=== PATIENT | female | born 1975 | race African-American/Black ===

== ENCOUNTER 2016-07-23 01:50 | Inpatient (IN) | payer OTHER ==
[~2016-07-23] VITALS: Ht 154.9 cm; Wt 102.1 kg
--- NOTE | 2016-07-23 11:26 | Admission Core Measures ---
Admission Meds I reviewed the following Meds: Current Medications Sig/Rosa Start time Last Medication Dose Stop Time Status Admin Cefazolin Sodium 2,000 MG ONCE 07/23 NR (Kefzol-Ancef Inj) 07/23 2358 Dexamethasone 10 MG ONCE 07/23 NR (Decadron) 07/23 2358 Heparin Sodium 5,000 UNIT ONCE 07/23 NR (Porcine) 07/23 2358 Acute Coronary Syndrome Inclusion Criteria ACS Diagnosis No Inpatient Core Measures LDL Reminder: If No, please order W/I first 24hr of stay Congestive Heart Failure Inclusion Criteria CHF Diagnosis No Cerebrovascular accident Inclusion Criteria CVA/TIA Diagnosis No Inpatient Core Measures Bedside Swallow Eval Reminder: If BSE failed, place ST order Antithrombotic Reminder: Order Antithrombotic Medication by end of day 2 Antithrombotic Reminder: Document Reason Antithrombotic Not ordered by end of day 2 AFIB/Flutter Reminder: If Present, add to problem list AFIB/Flutter Reminder: Order Anticoag Medication for pts with AFIB/Flutter Atherosclerosis Reminder: If Present, add to problem list LDL Reminder: If No, please order W/I first 24hr of stay PT Order Reminder: If No, please order Venous thromboembolism Inpatient Core Measures VTE Risk Factors: Age > 40, Obesity, Surgery VTE Prophylaxis Ordered Inpt Mech & Pharm No Mech VTE prophylaxis d/t No contraindications No VTE Pharm Prophylaxis d/t No contraindications Inclusion Criteria - Per Current guidelines, there needs to be overlap - treatment for the first 5 days of Warfarin therapy. - Parenteral Anticoagulation (IV or SC) needs to be - given along with Warfarin therapy. VTE Diagnosis No VTE Type NONE VTE Confirmed by (Test) NONE Problem List As ranked by this Provider includes Assessment & Plan 1. S/P laparoscopic sleeve gastrectomy
--- NOTE | 2016-07-23 11:31 | Operative Report ---
Operative/Inv Procedure Report Surgery Date: 07/23/16 Name of Procedure: Laparoscopic vertical sleeve gastrectomy Pre-Operative Diagnosis: Morbid obesity, sleep apnea Post-Operative Diagnosis: Same Estimated Blood Loss: less than 50ml Surgeon/Registered Medical Transcriptionist: ZANE FERNANDEZ,LUZ Junior PA-C Anesthesia: general endotracheal tube, block IV Fluids: LR Implants: none Urine Output: not measured Drains: none Specimens: portion of stomach Complications: none Condition: stable Operative/Procedure Note Note: After informed consent and proper identification the patient was taken the operating room and placed on the operating table supine position patient had Venodyne stockings applied she underwent a general endotracheal anesthetic. Anesthesia administered a Windy block. The abdomen was prepped and draped in normal sterile fashion using a Covidean 10 mm Optiview trocar we entered the abdominal cavity without difficulty. We insufflated with 14 mm CO2 pressure. We placed additional trochars 25 mm trochars in each of the subcostal margins a Jim liver retractor in the upper midline to retract the left lobe of the liver and a 15 mm trocar in the right mid abdomen We had excellent visualization the liver was smooth small and glistening there was no evidence of a hiatal hernia. We had anesthesia decompress the stomach with an orogastric tube and then remove it using a Sonicision Scalpel divided the vascular gastric attachments along the greater curvature of the stomach opposite the angularis 6 cm from the pylorus all the way up to the angle his we reflected the fundus of the stomach off the left taz. Patient had very clear appearing anatomy we could visualize the pancreas were careful not to injure the spleen pancreas and splenic vessels. We began stapling after having anesthesia placed a 30 Albanian bougie into the stomach as a guide we stapled using to 60 cm black cartridges with seam guard followed by 2 purple 60 cm with seam guard and a single 45 purple cartridge with seam guard to completely transect the sleeve from the remnant stomach there is no bleeding along the staple line. We removed the remnant stomach in a 15 Endo Catch bag and removed a Jim liver retractor and all trochars the bougie was removed by anesthesia sponge and instrument counts were correct there is no active bleeding we closed the skin incisions with 4-0 Monocryl subcuticular stitches and skin glue patient was extubated and taken the recovery room in stable condition Findings: normal liver, no evidence of hiatal hernia Discharge Disposition: PACU
--- NOTE | 2016-07-23 14:13 | PN- Bariatrics ---
Subjective Subjective: The patient was seen this afternoon postoperatively. She reports the pain was under adequate control but she was having some mild nausea. She had no other complaints at the current time and denied any chest pain or difficulty breathing. Objective Vital Signs and I&Os Vital signs: Blood pressure 130/80, pulse 60, temperature 97.8, O2 saturation 100% on 2 L via nasal cannula I's and O's: 1200 ML's in of lactated Ringer's/patient has not voided/EBL scant Physical Exam: Gen.: Alert and obvious distress Skin: Warm and dry Cardiac: S1-S2 regular Pulmonary: Bilateral breath sounds were equal and slightly decreased at bases. Abdomen: Soft, obese, appropriate incisional tenderness, bowel sounds positive. Port sites are clean, dry, and intact without signs of infection aside from the left lateral port site which was slightly bloody but intact. Extremities: Bilateral lower extremities are warm without calf tenderness or significant edema. Assessment/Plan Assessment/Plan Assessment: 41-year-old female status post laparoscopic sleeve gastrectomy. Postoperative the patient is progressing as expected and her pain is under adequate control. Plan: Stage I diet until midnight then the patient will be nothing by mouth for an upper GI in the morning Out of bed and ambulate GI and DVT prophylaxis IV hydration Follow-up morning laboratory studies GI and DVT prophylaxis Continue current pain regiment Strict I's and O's Core Measures/Miscellaneous Venous Thromboembolism VTE Risk Factors: Age > 40, Obesity, Surgery VTE Contraindications: No Contraindications VTE Prophylaxis Ordered Inpt: Mech & Pharm VTE Diagnosis: No VTE Type: NONE VTE Confirmed by (Test): NONE Beta Hilario Is Beta Hilario a Home Med? No Antibiotics Is Patient on Antibiotics? Yes If Yes: prophylaxis
[2016-07-23] MEDS ORDERED: HYCET 7.5 MG-3473 ML PO (14:50)
[2016-07-23] MEDS ORDERED: PROTONIX40 M3 PO (14:50)
--- NOTE | 2016-07-23 14:53 | Patient Discharge Instructions ---
Discharge Instructions General Discharge Information You were seen/treated for: Morbid obesity You had these procedures: Laparoscopic sleeve gastrectomy Watch for these problems: Significantly increased pain, nausea, or temperatures. Increased redness or drainage from around the incisions Chest pain or difficulty breathing. No bath, but you may shower: Yes Other wound care: Remove dressings when to get home wheezing weight strips intact until seen by [facility] shower regularly but no bath and pat dry Special Instructions: See preprinted information packet Ambulate frequently May use Gas-X for gas pain Diet Recommended Diet: Bariatric Activity Activity Self Limited: Yes Pounds, do NOT lift more than: 10 Acute Coronary Syndrome Inclusion Criteria At DC or during hospital stay patient has or had the following: ACS DIAGNOSIS No Discharge Core Measures Meds if any: Prescribed or Continued at Discharge Meds if any: NOT Prescribed or Continued at Discharge Congestive Heart Failure Inclusion Criteria At DC or during hospital stay patient has or had the following: CHF DIAGNOSIS No Discharge Core Measures Meds if any: Prescribed or Continued at Discharge Meds if any: NOT Prescribed or Continued at Discharge Cerebrovascular accident Inclusion Criteria At DC or during hospital stay patient has or had the following: CVA/TIA Diagnosis No Discharge Core Measures Meds if any: Prescribed or Continued at Discharge Meds if any: NOT Prescribed or Continued at Discharge Venous thromboembolism Inclusion Criteria VTE Diagnosis No VTE Type NONE VTE Confirmed by (Test) NONE Discharge Core Measures - Per Current guidelines, there needs to be overlap - treatment for the first 5 days of Warfarin therapy. - If discharged on Warfarin prior to 5 days of - overlap therapy, the patient will need to be - assessed for post discharge needs including - *Post discharge parental anticoagulation - *Warfarin and/or parental anticoagulation education - *Follow up date to check INR post discharge At least 5 days overlap therapy as Inpatient No Meds if any: Prescribed or Continued at Discharge Note: Overlap Therapy is Warfarin and Anticoagulant Meds if any: NOT Prescribed or Continued at Discharge
--- NOTE | 2016-07-23 14:55 | Surg Short-stay <48hrs Dis Sum ---
See Addendum Visit Information Visit Dates Admission Date: 07/23/16 Discharge Date: 07/25/16 Surgical Short Stay DC Summary Admission Diagnosis: Morbid obesity Final Diagnosis: Same Procedure(s): Scopic sleeve gastrectomy Summary/Significant Findings: The patient was admitted on 07/23/2016. She was brought to the operating theater where she underwent a laparoscopic sleeve gastrectomy. Postoperatively the patient progressed as expected, her pain is under adequate control, and she was tolerating a stage I diet without nausea. The patient was discharged on hospital course. Condition at Discharge: Stable Discharge Disposition: home or self care Discharge instructions provided to patient/family: Yes Post discharge follow-up plan: Call the office to be seen in one week
[2016-07-23 15:01] VITALS: BP 112/88
--- NOTE | 2016-07-23 15:01 | NUR ---
ADMISSION NOTE: PT ARRIVED TO FLOOR WITH DISTRIBUTION VIA STRETCHER, SLEEPY ORIENTED X3, ROOM AIR, SATTING 94%, PAIN 10/10 TO LEFT CHEST, SURG PA PAULINE AWARE AND SAYS IT'S TO BE EXPECTED- GAS PAIN. PT EDUCATED THAT AMBULATING EASES GAS PAIN. PT NAUSEOUS AND DRY HEAVING, PAULINE AWARE.REGLAN ORDERED AND ADMINISTERED. 5 2X2 DRESSINGS TO ABDOMEN WITH MODERATE SEROSANGUINOUS DRAININAGE. IV SITES INTACT, IVF RUNNING PER MD ORDER. PT EDUCATED TO DRINK ONE SHOT OF BARIATRIC PROTEIN DRINK Q 15MINS WHILE AWAKE AND NOT NAUSEOUS. RESTING IN BED IN LOW LOCKED POSITION. TORADOL GIVEN FOR PAIN.
[2016-07-23 17:00] VITALS: BP 138/72
[2016-07-23 19:08] VITALS: BP 128/70
[2016-07-23 21:16] VITALS: BP 132/80
--- NOTE | 2016-07-24 | NUR ---
PT C/O OF NAUSEA AND HAD TWO MINOR EPISODES OF VOMITTING OF 5 ML PINKISH TINGED. PT WAS GIVEN ZOFRAN. SURGICAL PA MADE AWARE. WILL CONTINUE TO MONITOR.
[2016-07-24 01:02] VITALS: BP 108/70
[2016-07-24 05:06] VITALS: BP 108/80
--- NOTE | 2016-07-24 08:03 | PN- Bariatrics ---
Subjective Subjective: Reports nausea slightly better. Epigastric discomfort slightly better after ambulating. Currently npo awaiting upper gi study. No dizziness. No shortness of breath. No chest pains. Voiding well. Objective Vital Signs and I&Os Vital Signs Date Time Temp Pulse Resp B/P Pulse O2 O2 Flow FiO2 Ox Delivery Rate 07/24 0506 98.0 63 20 108/80 97 Room Air 07/24 0500 97 CPAP 07/24 0200 94 CPAP 07/24 0102 99.1 71 20 108/70 94 Room Air 07/24 0000 94 CPAP 07/24 0000 94 CPAP 07/23 2116 97.8 74 20 132/80 94 CPAP 07/23 1908 97.1 74 20 128/70 97 CPAP 07/23 1840 Room Air 07/23 1700 98.2 66 20 138/72 92 Room Air 07/23 1501 98.0 72 20 112/88 94 Room Air Intake & Output 07/24 0800 07/24 0000 07/23 1600 07/23 0800 07/23 0000 07/22 1600 Intake Total 800 300 Output Total 400 450 Balance 400 -150 Intake, IV 500 Intake, Oral 300 300 Output, Urine 400 450 Patient 225 lb Weight Physical Exam: General - alert & oriented x 3. comfortable. no acute distress. Lungs - clear bilaterally. no w/r/r. Cardiac - s1s2. reg. Abdomen - soft. dressings c/d/i. expected vira-incisional discomfort. Extremities - warm b/l. no c/c/e. calves soft and nontender b/l. Assessment/Plan Assessment/Plan This 41-year-old female POD#1 s/p lap sleeve gastrectomy, post-op nausea currently npo awaiting upper gi study toradol / hycet prn pain control zofran prn nausea protonix - gi ppx hep sc - dvt ppx oob/ambulation f/u labs f/u upper gi study will d/w Core Measures/Miscellaneous Venous Thromboembolism VTE Risk Factors: Age > 40, Obesity, Surgery VTE Contraindications: No Contraindications VTE Prophylaxis Ordered Inpt: Mech & Pharm VTE Diagnosis: No VTE Type: NONE VTE Confirmed by (Test): NONE Beta Hilario Is Beta Hilario a Home Med? No Antibiotics Is Patient on Antibiotics? Yes If Yes: prophylaxis
[2016-07-24 08:50] LABS: ABSOLUTE BASOPHIL COUNT 0 /CUMM (0.0-0.2); ABSOLUTE EOSINOPHIL COUNT 0 /CUMM (0.0-0.7); ABSOLUTE MONOCYTE COUNT 0.7 /CUMM (0.10-0.60); EOSINOPHIL % 0 % (0-5); MEAN CORPUSCULAR HGB CONC 32.3 G/DL (33.0-37.0); RED BLOOD CELL CT 4.38 /CUMM (4.20-5.40)
[2016-07-24 08:58] VITALS: BP 124/88
[2016-07-24 08:58] LABS: ABSOLUTE LYMPH COUNT 1.2 /CUMM (1.2-3.4); BASOPHIL % 0 % (0.0-2.0); HEMATOCRIT 35.4 % (37-47); MEAN CORPUSCULAR HGB 26.1 PG (27.0-31.0); MEAN CORPUSCULAR VOLUME 80.7 FL (81.0-99.0); MEAN PLATELET VOLUME 8.3 FL (7.4-10.4); PLATELET COUNT 278 /CUMM (130-400); RBC DISTRIBUTION WIDTH 14.6 % (11.5-14.5)
[2016-07-24 09:00] LABS: WHITE BLOOD CELL COUNT 12.9 /CUMM (4.8-10.8)
[2016-07-24 09:17] LABS: GRANULOCYTE % 85.2 % (42.2-75.2)
--- NOTE | 2016-07-24 09:23 | NUR ---
BAILEY NOTE: PT LEFT FLOOR VIA STRETCHER WITH DISTIRBUTION FOR UPPER GI SERIES XRAY PER MD ORDER, PT AWAKE, A/OX3, ROOM AIR, DENIES PAIN, IVF PER MD ORDER, NPO. DENIES NAUSEA, AWAIT RETURN TO FLOOR.
--- NOTE | 2016-07-24 10:53 | RADIOLOGY REPORT ---
EXAMINATION: XR UPPER GI SERIES CLINICAL INFORMATION: Status post sleeve gastrectomy. COMPARISON: None. TECHNIQUE: Multiple spot fluoroscopy images of the abdomen were acquired during performance of a routine postoperative upper GI series. The patient was given 30 mL of Gastroview contrast material. FLUOROSCOPY TIME: 41 seconds. FINDINGS: There is postoperative narrowing of the gastric body consistent with the expected configuration after sleeve gastrectomy. There was no delay in contrast passage through the esophagus, into the stomach and proximal duodenum. Patient was placed in oblique positions and there was no leakage of contrast from the stomach. IMPRESSION: No evidence of contrast leakage from the stomach after sleeve gastrectomy.
--- NOTE | 2016-07-24 11:18 | NUR ---
NURSING NOTE: UPPER GI SERIES NEGATIVE PER PAULINE; PT STARTED ON STAGE 1 BARIATRIC DIET. EDUCATED ABOUT THE DIET AND DRINKING LIQUIDS 30ML Q 15 MINUTES. PT DENIES COMPLAINTS AT THIS TIME. CONT TO MONITOR.
--- NOTE | 2016-07-24 15:31 | NUR ---
Visited with pt today, discussed post-op diet and provided handout. Pt had post-op diet handout previously but would like another copy. Pt completed pre-op nutrition visits at [facility]. Questions answered and pt has RD contact information.
== END 2016-07-24 18:00 | DRG 403 ==
LOC: 2NB 01:50 → SDA 01:50 → 2NB 14:26
PROVIDERS: Physician Assistant Surgical; ADMIT Surgery
PROC: 0DB64Z3 Excision of Stomach, Percutaneous Endoscopic Approach, Vertical (ICD-10-PCS; principal; 2016-07-23)
DX: E66.01 Morbid (severe) obesity due to excess calories (principal); Z68.41 Body mass index [BMI] 40.0-44.9, adult; Z71.3 Dietary counseling and surveillance; E20.9 Hypoparathyroidism, unspecified; G47.33 Obstructive sleep apnea (adult) (pediatric); K21.9 Gastro-esophageal reflux disease without esophagitis; Z87.891 Personal history of nicotine dependence
CPT/HCPCS: 2NBSP; 36415; 74240; 82436; 88307; J0131; J0690; J1100; J1170; J1630; J1644; J1885; J2405; J2765; J7042; S5012